=== PATIENT | male | born 1955 ===

== ENCOUNTER 2019-03-05 15:05 | Inpatient (IN) | payer BC ==
[~2019-03-05] VITALS: Ht 177.8 cm; Wt 71.7 kg
[2019-03-05] MEDS ORDERED: SIMETHICONE 80 MG TAB.CHEW PO PRN (20:30)
[2019-03-05] MEDS ORDERED: LORAZEPAM 1 MG TABLET PO PRN (20:30)
--- NOTE | 2019-03-05 20:55 | NUR ---
Admitting Notes Patient arrived from [facility] via ambulance, with daughter and friend at bedside, and was transferred from the [facility] to his bed. Patient is alert/oriented x3 with no complaints of pain or discomfort at this time. Daughter, Jessica, had DPOA, and can be reached at [phone]. Per patient, he has no significant medical history other than high blood pressure and is not currently taking blood pressure medication to control his BP. Patient states he does not have a history of diabetes mellitus or any other endocrine issues. Patient has a medial abdominal incision which is healing, three healing laparotomy incisions on the left side of his chest/abdomen which are healing, and left scar on his knee from previous knee replacement. Patient currently has a left sided colostomy, with a pink stoma, and liquid brown drainage in collection bag. Patient has a left sided nephrostomy with light yellow drainage and is also able to use the urinal, which also reflects light yellow output. Patient's blood pressure at at this time is 113/68 hr 95 thus the 2100h scheduled nitro-bid ointment 2g was withheld. Will continue to monitor and assess.
[2019-03-05] MEDS: NITROGLYCERIN OINT 1 GM PACKET TP SCH (21:00)
[2019-03-05] MEDS ORDERED: CARVEDILOL 25 MG TABLET PO SCH (21:00)
[2019-03-05] MEDS ORDERED: Z GUARD REMEDY PASTE 57 GM TUBE TOP PRN (21:30)
[2019-03-05 21:31] VITALS: BP 113/68
[2019-03-06] MEDS ORDERED: METOCLOPRAMIDE HCL 10 MG/2 ML VIAL IV SCH
[2019-03-06] MEDS ORDERED: METOCLOPRAMIDE HCL 10 MG TABLET ONE (00:09)
[2019-03-06] MEDS: METOCLOPRAMIDE HCL 10 MG TABLET PO SCH ×5 (00:11→20:23)
[2019-03-06 04:30] VITALS: BP 150/75
[2019-03-06] MEDS: PANTOPRAZOLE SODIUM 40 MG TABLET.DR PO SCH (06:20)
--- NOTE | 2019-03-06 06:30 | NUR ---
Patient slept intermittently throughout night after admission to Acute Rehab dept. Patient had no complaints of pain or discomfort this shift, but patient did state that he was unable to sleep completely. Nurse observe any signs/symptoms of acute distress or discomfort after admission to unit. Prescribed 2200h nitro-bid was withheld due to decreased blood pressure of 113/68 hr 95. New order for stat chest x-ray for 03/06/19 noted. MRSA screen ordered and will collect before end of shift, as patient is currently sleeping. All nursing needs were met promptly and patient is warm, dry, and comfortable. All safety and fall precaution measures remain in place. Call light and personal items remain within reach at all times.
[2019-03-06 07:34] LABS: BASOPHILS % (AUTO) 0.5 % (0.0-2.0); EOSINOPHILS # (AUTO) 0.1 K/uL (0.0-0.7); EOSINOPHILS % (AUTO) 1.1 % (0.0-7.0); HEMOGLOBIN 8.3 g/dL (12.5-16.3); LYMPHOCYTES # (AUTO) 0.7 K/uL (20.0-40.0); LYMPHOCYTES % (AUTO) 10.8 % (20.5-51.5); MEAN CORPUSCULAR HEMOGLOBIN 27.6 uug (23.8-33.4); MEAN CORPUSCULAR HGB CONC 33 g/dL (32.5-36.3); MEAN CORPUSCULAR VOLUME 82.9 fL (73.0-96.2); MONOCYTES % (AUTO) 14.4 % (0.0-11.0); NEUTROPHILS # (AUTO) 4.8 K/uL (1.8-8.9); NEUTROPHILS % (AUTO) 73.2 % (38.5-71.5); PLATELET COUNT (AUTO) 276 K/uL (152-348); RED BLOOD CELL COUNT(AUTO) 3.01 MIL/uL (4.06-5.63); WHITE BLOOD COUNT (AUTO) 6.6 K/uL (3.6-10.2)
[2019-03-06 07:43] LABS: BILIRUBIN,TOTAL 0.4 mg/dL (0.2-1.0); CREATININE 1.4 mg/dL (0.6-1.3); MAGNESIUM 1.4 mg/dL (1.8-2.4); PHOSPHOROUS 3.7 mg/dL (2.5-4.9); POTASSIUM 3.6 mmol/L (3.5-5.1); TOTAL PROTEIN, SERUM 6.5 g/dL (6.4-8.2)
[2019-03-06] MEDS: CARVEDILOL 12.5 MG TABLET PO SCH ×2 (07:49→17:22)
[2019-03-06] MEDS: NITROGLYCERIN OINT 1 GM PACKET TP SCH ×3 (07:49→20:24)
[2019-03-06 08:00] VITALS: BP 147/78
[2019-03-06] MEDS ORDERED: CARVEDILOL 25 MG TABLET PO SCH (08:00)
[2019-03-06] MEDS: MINERAL OIL 30 ML OIL PO SCH ×2 (10:00→17:00)
[2019-03-06] MEDS ORDERED: MAGNESIUM OXIDE 400 MG TABLET PO ONE (12:00)
--- NOTE | 2019-03-06 13:20 | NUR ---
WOUND CARE CONSULT: PT PRESENTS WITH HEALED ABDOMINAL INCISION, HEALING TRACH, LEFT NEPHROSTOMY TUBE WITH TAPE BLISTER TO LEFT HIP AREA AND COLOSTOMY, ALL PRESENT ON ADMISSION. PT TO BE FOLLOWED BY SURGICAL TEAM. RECOMMENDATIONS MADE FOR WOUND CARE OF TAPE BLISTER. DISCUSSED WITH NURSING STAFF. PT IS INDEPENDENT WITH BED MOBILITY AND CONTINENT. WILL SEE PRN. CLEMONS IN AGREEMENT WITH PLAN OF CARE. Addendum: 03/06/19 at 1323 by SHELLY YAP RN Amended: Links added.
[2019-03-06 16:31] VITALS: BP 155/83
[2019-03-06 19:54] VITALS: BP 120/63
--- NOTE | 2019-03-06 21:37 | NUR ---
aaox4 admitted for diverticulitis. Needs attended. VSS. No acute distress noted. Tolerated po meds well. Abdominal incision KELLIE. Left hip abrasion with xeroform and mepilex applied. Left side colostomy intact with brownish liquid stool noted. Left side nephrostomy intact draining yellow urine. Patient still void. Denies any pain nor any chest discomfort. Dressing intact to trach stoma. Will monitor patient.
[2019-03-07 05:10] VITALS: BP 106/57
[2019-03-07] MEDS: PANTOPRAZOLE SODIUM 40 MG TABLET.DR PO SCH (06:30)
[2019-03-07] MEDS: METOCLOPRAMIDE HCL 10 MG TABLET PO SCH ×4 (06:31→20:45)
--- NOTE | 2019-03-07 06:57 | NUR ---
slept well. aaox4 left nephrostomy intact draining well. No acute distress noted. left colostomy intact. Denies any pain nor any discomfort. Siderails up for safety.
[2019-03-07 07:10] LABS: BASOPHILS # (AUTO) 0.1 K/uL (0.0-8.0); BASOPHILS % (AUTO) 0.8 % (0.0-2.0); EOSINOPHILS # (AUTO) 0.1 K/uL (0.0-0.7); EOSINOPHILS % (AUTO) 1.3 % (0.0-7.0); HEMATOCRIT 23.2 % (36.7-47.1); HEMOGLOBIN 7.8 g/dL (12.5-16.3); LYMPHOCYTES # (AUTO) 0.8 K/uL (20.0-40.0); LYMPHOCYTES % (AUTO) 12.9 % (20.5-51.5); MEAN CORPUSCULAR HEMOGLOBIN 27.5 uug (23.8-33.4); MEAN CORPUSCULAR HGB CONC 34 g/dL (32.5-36.3); MEAN CORPUSCULAR VOLUME 81.1 fL (73.0-96.2); MONOCYTES # (AUTO) 0.9 K/uL (2.0-10.0); MONOCYTES % (AUTO) 14.2 % (0.0-11.0); NEUTROPHILS # (AUTO) 4.3 K/uL (1.8-8.9); NEUTROPHILS % (AUTO) 70.8 % (38.5-71.5); PLATELET COUNT (AUTO) 289 K/uL (152-348); RED BLOOD CELL COUNT(AUTO) 2.86 MIL/uL (4.06-5.63)
[2019-03-07 07:24] LABS: CREATININE 1.4 mg/dL (0.6-1.3); MAGNESIUM 1.5 mg/dL (1.8-2.4); PHOSPHOROUS 3.8 mg/dL (2.5-4.9); POTASSIUM 3.7 mmol/L (3.5-5.1)
[2019-03-07 08:00] VITALS: BP 132/68
[2019-03-07] MEDS: CARVEDILOL 12.5 MG TABLET PO SCH ×2 (08:44→17:07)
[2019-03-07] MEDS: NITROGLYCERIN OINT 1 GM PACKET TP SCH ×2 (08:44→20:46)
[2019-03-07] MEDS: MINERAL OIL 30 ML OIL PO SCH ×2 (09:00→17:00)
[2019-03-07] MEDS ORDERED: MAGNESIUM OXIDE 400 MG TABLET PO ONE (12:00)
[2019-03-07 16:17] VITALS: BP 125/64
--- NOTE | 2019-03-07 18:21 | NUR ---
Patient is AAOx4. Able to express needs. Vital signs stable for patient. Afebrile. Due medications administered as ordered and scheduled and tolerated well. Patient with a colostomy and nephrostomy bags and draining well within normal limit color for both output. Pt. on PT/OT therapy. Skin kept clean and dry. patient seen by MEDIA PRODUCTION MANAGER with NNO for now. NO c/o pain at this time. Needs attended, safety measures in place, call light left at bed side and will continue with care.
--- NOTE | 2019-03-07 18:46 | NUR ---
Mineral oil not available, spoke with pharmacy and they stated will be delivered tomorrow.
[2019-03-07 19:56] VITALS: BP 115/70
--- NOTE | 2019-03-07 21:19 | NUR ---
PATIENT IS IN BED, ALERT AND VERBALLY RESPONSIVE. AFEBRILE. PATIENT HAS FRIEND AT BEDSIDE. IN NO RESPIRATORY DISTRESS. DENIES PAIN AT THIS TIME. RECEIVED DUE MEDICATIONS ORDERED. TOLERATED WELL. CHANGED TRACH STOMA DRESSING PER PATIENT'S REQUEST. TOLERATED DRESSING CHANGE WELL. PATIENT WITH LEFT SIDE COLOSTOMY, INTACT. ALSO WITH LEFT SIDE NEPHROSTOMY, INTACT. CALL LIGHT AND PERSONAL BELONGINGS WITHIN REACH. SIDE RAILS X 2 UP. BED WHEELS LOCKED. BED IN LOW POSITION. KEPT PATIENT CLEAN, WARM, AND COMFORTABLE. WILL CONTINUE TO MONITOR PATIENT.
[2019-03-07] MEDS: diphenhydrAMINE 50 MG CAPSULE PO PRN (21:48)
[2019-03-08 04:45] VITALS: BP 120/65
[2019-03-08] MEDS: PANTOPRAZOLE SODIUM 40 MG TABLET.DR PO SCH (06:35)
[2019-03-08] MEDS: METOCLOPRAMIDE HCL 10 MG TABLET PO SCH ×4 (06:35→20:51)
--- NOTE | 2019-03-08 06:39 | NUR ---
PATIENT IS IN BED, ALERT AND VERBALLY RESPONSIVE. IN NO ACUTE OR RESPIRATORY DISTRESS. TRACH STOMA DRESSING INTACT. PATIENT WITH LEFT SIDE COLOSTOMY DRAINING BROWN SOFT STOOL. PATIENT ALSO WITH LEFT SIDE NEPHROSTOMY DRAINING CLEAR YELLOW URINE. FALL, SAFETY, ASPIRATION PRECAUTIONS OBSERVED. KEPT PATIENT WARM AND COMFORTABLE. CALL LIGHT AND PERSONAL BELONGINGS WITHIN REACH. BED AT LOW POSITION AND BED WHEELS LOCKED. ALL NEEDS ATTENDED.
[2019-03-08 07:37] VITALS: BP 138/75
[2019-03-08] MEDS: CARVEDILOL 12.5 MG TABLET PO SCH ×2 (08:39→17:17)
[2019-03-08] MEDS: NITROGLYCERIN OINT 1 GM PACKET TP SCH ×2 (08:41→20:51)
[2019-03-08] MEDS: MINERAL OIL 30 ML OIL PO SCH ×2 (12:06→16:58)
--- NOTE | 2019-03-08 13:23 | NUR ---
Pt received this morning, resting in bed. Pt assessed, able to make needs known. Pt denies pain, SOB, and discomfort. Pt compliant with medication administration and therapies as offered. Pt assisted with trach stoma dressing change, healing well with no s/s of infection. Colostomy bag changed, brown stool output noted, stoma beefy red, skin integrity intact. Nephrostomy draining clear, yellow urine, 300 cc emptied. All safety and comfort needs attended to, call light and personal items within reach. Bed locked, in lowest position with side rails up x2, and alarm on. Will continue to monitor.
--- NOTE | 2019-03-08 15:24 | NUR ---
INDIVIDUALIZE OVERALL PLAN OF CARE
[2019-03-08] MEDS ORDERED: TEMAZEPAM 7.5 MG CAPSULE PO PRN (15:30)
[2019-03-08] MEDS: VITAMINS A AND D OINT TP SCH (16:58)
[2019-03-08 17:10] VITALS: BP 140/78
[2019-03-08 20:02] VITALS: BP 118/65
--- NOTE | 2019-03-08 20:07 | NUR ---
RECEIVED PATIENT IN BED, ALERT AND VERBALLY RESPONSIVE. AFEBRILE. NO RESPIRATORY DISTRESS. NO COMPLAINTS OF PAIN AT THIS TIME. PATIENT HAS DRY DRESSING INTACT ON TRACH STOMA SITE. PATIENT ALSO WITH LEFT SIDE NEPHROSTOMY DRAINING CLEAR YELLOW URINE. PATIENT WITH LEFT SIDE COLOSTOMY WITH BROWN SOFT STOOL. PATIENT REQUESTED FOR NEW URINAL BOTTLE AND BLANKET. PROVIDED REQUESTED. FALL, SAFETY, AND ASPIRATION PRECAUTIONS OBSERVED. CALL LIGHT WITHIN REACH. BED WHEELS LOCKED AND SIDE RAILS X 2 UP. BED AT LOW POSITION. WILL CONTINUE TO MONITOR PATIENT.
[2019-03-09] MEDS: diphenhydrAMINE 50 MG CAPSULE PO PRN (01:07)
[2019-03-09 04:10] VITALS: BP 127/74
[2019-03-09 05:57] VITALS: BP 127/74
--- NOTE | 2019-03-09 06:13 | NUR ---
PATIENT IS IN BED, WAS INTERMITTENTLY AWAKE AND ASLEEP. RECEIVED TEMAZEPAM 7.5MG AT 21:43 ORDERED. WOKE UP AT 00:30. PATIENT THEN VERBALIZED HE CAN'T SLEEP. PROVIDED PERSONAL HYGIENE TO PATIENT. KEPT CLEAN AND DRY. PATIENT REQUESTED FOR JELLO, PROVIDED PER REQUEST. AT 01:07, PATIENT RECEIVED BENADRYL 50MG ORDERED. UPON ROUNDS AT 02:00 AND 04:00, PATIENT ASLEEP IN BED. PATIENT WOKE UP AT 06:10. NO ACUTE OR RESPIRATORY DISTRESS. ALL NEEDS ATTENDED. FALL, SAFETY, AND ASPIRATION PRECAUTIONS OBSERVED.
[2019-03-09] MEDS: METOCLOPRAMIDE HCL 10 MG TABLET PO SCH ×4 (06:34→20:54)
[2019-03-09] MEDS: PANTOPRAZOLE SODIUM 40 MG TABLET.DR PO SCH (06:34)
[2019-03-09 07:09] LABS: BASOPHILS % (AUTO) 0.6 % (0.0-2.0); EOSINOPHILS # (AUTO) 0.1 K/uL (0.0-0.7); EOSINOPHILS % (AUTO) 1.8 % (0.0-7.0); HEMOGLOBIN 7.7 g/dL (12.5-16.3); LYMPHOCYTES # (AUTO) 0.6 K/uL (20.0-40.0); LYMPHOCYTES % (AUTO) 9.4 % (20.5-51.5); MEAN CORPUSCULAR HEMOGLOBIN 27.1 uug (23.8-33.4); MEAN CORPUSCULAR HGB CONC 34 g/dL (32.5-36.3); MEAN CORPUSCULAR VOLUME 80.9 fL (73.0-96.2); MONOCYTES # (AUTO) 0.9 K/uL (2.0-10.0); MONOCYTES % (AUTO) 12.7 % (0.0-11.0); NEUTROPHILS # (AUTO) 5.1 K/uL (1.8-8.9); NEUTROPHILS % (AUTO) 75.5 % (38.5-71.5); PLATELET COUNT (AUTO) 286 K/uL (152-348); RED BLOOD CELL COUNT(AUTO) 2.84 MIL/uL (4.06-5.63); WHITE BLOOD COUNT (AUTO) 6.8 K/uL (3.6-10.2)
[2019-03-09 07:41] LABS: CREATININE 1.2 mg/dL (0.6-1.3); MAGNESIUM 1.6 mg/dL (1.8-2.4); PHOSPHOROUS 4.4 mg/dL (2.5-4.9); POTASSIUM 3.4 mmol/L (3.5-5.1)
[2019-03-09] MEDS: MINERAL OIL 30 ML OIL PO SCH ×2 (08:50→16:51)
[2019-03-09] MEDS: CARVEDILOL 12.5 MG TABLET PO SCH ×2 (08:51→17:09)
[2019-03-09] MEDS: NITROGLYCERIN OINT 1 GM PACKET TP SCH ×2 (09:01→20:56)
[2019-03-09] MEDS: VITAMINS A AND D OINT TP SCH ×2 (09:02→17:10)
[2019-03-09] MEDS ORDERED: POTASSIUM CHLORIDE 20 MEQ TAB.PRT.SR PO ONE (10:30)
[2019-03-09] MEDS ORDERED: MAGNESIUM OXIDE 400 MG TABLET PO ONE (10:30)
--- NOTE | 2019-03-09 13:37 | NUR ---
INTERDISCIPLINARY TEAM CONFERENCE
[2019-03-09 15:40] VITALS: BP 117/69
--- NOTE | 2019-03-09 17:49 | NUR ---
PATIENT IS ALERT, ORIENTED X4, VERBALLY RESPONSIVE, NO SOB, RESP EVEN NONLABORED,SKIN WARM AND DRY TO TOUCH, COLOSTOMY IS INTACT, NEPHROSTOMY IS INTACT, NOTED WITH ANGRY AND DENIAL MOOD TOWARD COLOSTOMY, CARE PROVIDED WITH WITTINESS OF CHARGE NURSE ON DUTY. OFFERED PATIENT THAT IF HE IS READY TO LEARN ABOUT COLOSTOMY CARE, PATIENT STATED " I AM NOT GOING HOME WITH COLOSTOMY AND I DO NOT NEED TO LEARN" STATUS POST TRACHEOTOMY, CARE PROVIDED, DRY AND CLEAN, NEW DRESSING DONE.
--- NOTE | 2019-03-09 20:00 | NUR ---
NSG: RECEIVED PATIENT LYING IN BED, ALERT AND ORIENTED VERBALLY RESPONSIVE. AFEBRILE. PATIENT HAS FRIEND AT BEDSIDE. IN NO RESPIRATORY DISTRESS. DENIES PAIN AND DISCOMFORT AT THIS TIME. RECEIVED DUE MEDICATIONS ORDERED. TOLERATED WELL. CHANGED TRACH STOMA DRESSING PER PATIENT'S REQUEST. PATIENT WITH LEFT SIDE COLOSTOMY, INTACT. ALSO WITH LEFT SIDE NEPHROSTOMY, INTACT. CALL LIGHT AND PERSONAL BELONGINGS WITHIN REACH. SIDE RAILS X 2 UP. BED WHEELS LOCKED. BED IN LOW POSITION. KEPT PATIENT CLEAN, WARM, AND COMFORTABLE. BED ALARM ON. WILL CONTINUE TO MONITOR PATIENT.
[2019-03-09 20:38] VITALS: BP 125/63
[2019-03-09] MEDS: TEMAZEPAM 15 MG CAPSULE PO PRN (21:30)
--- NOTE | 2019-03-10 05:42 | NUR ---
NSG: Remain cooperative. slept well through the night. Restoril 15 mg po effective for sleep. no c/o pain or discomfort at this time.continue monitor for safety.
[2019-03-10 06:00] VITALS: BP 110/67
[2019-03-10] MEDS: PANTOPRAZOLE SODIUM 40 MG TABLET.DR PO SCH (06:00)
[2019-03-10] MEDS: METOCLOPRAMIDE HCL 10 MG TABLET PO SCH ×4 (06:31→21:28)
[2019-03-10 07:22] LABS: CREATININE 1.4 mg/dL (0.6-1.3); MAGNESIUM 1.5 mg/dL (1.8-2.4); PHOSPHOROUS 4.2 mg/dL (2.5-4.9); POTASSIUM 3.7 mmol/L (3.5-5.1)
[2019-03-10 07:23] LABS: BASOPHILS % (AUTO) 0.5 % (0.0-2.0); EOSINOPHILS # (AUTO) 0.1 K/uL (0.0-0.7); EOSINOPHILS % (AUTO) 1.4 % (0.0-7.0); HEMATOCRIT 23.5 % (36.7-47.1); HEMOGLOBIN 7.7 g/dL (12.5-16.3); LYMPHOCYTES # (AUTO) 0.8 K/uL (20.0-40.0); MEAN CORPUSCULAR HEMOGLOBIN 26.7 uug (23.8-33.4); MEAN CORPUSCULAR HGB CONC 33 g/dL (32.5-36.3); MEAN CORPUSCULAR VOLUME 81.6 fL (73.0-96.2); MONOCYTES # (AUTO) 0.9 K/uL (2.0-10.0); NEUTROPHILS # (AUTO) 5.2 K/uL (1.8-8.9); NEUTROPHILS % (AUTO) 74.1 % (38.5-71.5); PLATELET COUNT (AUTO) 303 K/uL (152-348); RED BLOOD CELL COUNT(AUTO) 2.88 MIL/uL (4.06-5.63); WHITE BLOOD COUNT (AUTO) 7.1 K/uL (3.6-10.2)
[2019-03-10 08:01] VITALS: BP 126/75
[2019-03-10] MEDS: MINERAL OIL 30 ML OIL PO SCH ×2 (08:25→19:06)
[2019-03-10] MEDS: NITROGLYCERIN OINT 1 GM PACKET TP SCH ×2 (08:25→21:29)
[2019-03-10] MEDS: CARVEDILOL 12.5 MG TABLET PO SCH ×2 (08:26→17:35)
[2019-03-10] MEDS: VITAMINS A AND D OINT TP SCH ×2 (08:29→17:35)
[2019-03-10] MEDS ORDERED: diphenhydrAMINE 1% CREAM 28.3 GM TUBE TP PRN (09:00)
[2019-03-10] MEDS: MAGNESIUM CHLORIDE 64 MG TABLET.SA PO SCH (09:16)
--- NOTE | 2019-03-10 09:53 | NUR ---
patient noted resting in bed, brother noted at bed side, no complaints of pain, no signs of distress noted, took all AM medications, call light in reach, bed locked and in lowest position
[2019-03-10] MEDS ORDERED: METO-295 PO (14:28)
[2019-03-10] MEDS ORDERED: SIME80TA15 PO (14:28)
[2019-03-10] MEDS ORDERED: CARV12.52 PO (14:28)
[2019-03-10] MEDS ORDERED: NITR1OIN2 TP (14:28)
[2019-03-10 15:00] VITALS: BP 120/64
[2019-03-10 19:37] VITALS: BP 118/61
[2019-03-10] MEDS: TEMAZEPAM 15 MG CAPSULE PO PRN (21:30)
[2019-03-11 04:50] VITALS: BP 121/70
[2019-03-11] MEDS: diphenhydrAMINE 25 MG CAP PO PRN ×2 (05:21→23:42)
[2019-03-11] MEDS: PANTOPRAZOLE SODIUM 40 MG TABLET.DR PO SCH (06:37)
[2019-03-11] MEDS: METOCLOPRAMIDE HCL 10 MG TABLET PO SCH ×4 (06:37→21:16)
[2019-03-11 08:00] VITALS: BP 135/79
[2019-03-11] MEDS: NITROGLYCERIN OINT 1 GM PACKET TP SCH ×2 (09:26→21:17)
[2019-03-11] MEDS: MAGNESIUM CHLORIDE 64 MG TABLET.SA PO SCH (09:27)
[2019-03-11] MEDS: MINERAL OIL 30 ML OIL PO SCH ×2 (09:28→18:05)
[2019-03-11] MEDS: CARVEDILOL 12.5 MG TABLET PO SCH ×2 (09:28→17:43)
[2019-03-11] MEDS: VITAMINS A AND D OINT TP SCH ×2 (09:47→17:43)
[2019-03-11 16:47] VITALS: BP 135/74
--- NOTE | 2019-03-11 19:20 | NUR ---
Received patient lying in bed. AAOx4. In no acute distress. Denies any pain or SOB. Visitor on bedside. Colostomy intact. Nephrostomy tube intact and draining via gravity. Dressing on tracheostomy site dry and clean. Needs attended to and met. Safety measure initiated and call starr within reached.
[2019-03-11 20:08] VITALS: BP 141/86
[2019-03-11] MEDS: MELATONIN 3 MG TABLET PO SCH (21:16)
[2019-03-11] MEDS: TEMAZEPAM 15 MG CAPSULE PO PRN (21:17)
[2019-03-12 04:20] VITALS: BP 113/69
--- NOTE | 2019-03-12 05:32 | NUR ---
Patient slept well last night. Denies any pain or SOB. Colostomy bag remains intact. Nephrostomy intact and draining. Dressing on tracheostomy site changes per pt request. Dressing remains intact, dry and clean. Needs attended to and met. Safety measure maintained and call starr within reached.
[2019-03-12] MEDS: METOCLOPRAMIDE HCL 10 MG TABLET PO SCH ×4 (06:31→21:16)
[2019-03-12] MEDS: PANTOPRAZOLE SODIUM 40 MG TABLET.DR PO SCH (06:31)
[2019-03-12 07:43] VITALS: BP 125/71
[2019-03-12] MEDS: NITROGLYCERIN OINT 1 GM PACKET TP SCH ×2 (08:55→21:07)
[2019-03-12] MEDS: CARVEDILOL 12.5 MG TABLET PO SCH ×2 (08:56→17:38)
[2019-03-12] MEDS: MINERAL OIL 30 ML OIL PO SCH ×2 (08:57→17:38)
[2019-03-12] MEDS: VITAMINS A AND D OINT TP SCH ×2 (08:58→17:38)
[2019-03-12] MEDS: MAGNESIUM CHLORIDE 64 MG TABLET.SA PO SCH (08:58)
[2019-03-12 15:01] VITALS: BP 119/59
--- NOTE | 2019-03-12 16:09 | NUR ---
Patient noted resting in bed, took shower with OT, colostomy emptied this shift, no complaints of pain, no signs of distress noted, call light in reach, bed locked and in lowest position, all needs met at this time
--- NOTE | 2019-03-12 19:20 | NUR ---
Received patient lying in bed. AAOx4. In no acute distress. Denies any pain or SOB. Colostomy intact. Nephrostomy tube intact and draining via gravity. Dressing on tracheostomy site dry and clean. Needs attended to and met. Safety measure initiated and call starr within reached.
[2019-03-12 20:50] VITALS: BP 122/66
[2019-03-12] MEDS: MELATONIN 3 MG TABLET PO SCH (20:57)
[2019-03-12 21:45] LABS: *BILIRUBIN,URIN NEGATIVE (NEGATIVE); *CLARITY,URINE CLEAR (CLEAR); *COLOR,URINE YELLOW (YELLOW); *KETONES,URINE NEGATIVE (NEGATIVE); *UROBILINOGEN,URINE 0.2 E.U./dl (NORMAL); LEUKOCYTE ESTERASE ,URINE TRACE (NEGATIVE); NITRITE, URINE NEGATIVE (NEGATIVE); PH,URINE 5.5 (5.0-8.0); UGLUCOSE NEGATIVE (NEGATIVE)
[2019-03-12 21:46] LABS: *BLOOD, URINE NEGATIVE (NEGATIVE)
[2019-03-12 21:49] LABS: BACTERIA,URINE FEW /HPF (NONE SEEN); MUCUS,URINE FEW /LPF (0-FEW); RBC,URINE 0-3 /HPF (0-3); SQUAMOUS EPITHELIAL CELL,UR FEW /HPF (NONE SEEN); WBC,URINE 80-100 /HPF (0-3)
[2019-03-13 04:10] VITALS: BP 116/66
--- NOTE | 2019-03-13 05:34 | NUR ---
Patient slept well last night. Denies any pain or SOB. Colostomy bag remains intact. Nephrostomy intact and draining. Dressing on tracheostomy site remains intact, dry and clean. Needs attended to and met. Safety measure maintained and call starr within reached.
[2019-03-13] MEDS: PANTOPRAZOLE SODIUM 40 MG TABLET.DR PO SCH (06:09)
[2019-03-13] MEDS: METOCLOPRAMIDE HCL 10 MG TABLET PO SCH ×4 (06:34→21:11)
[2019-03-13 07:09] LABS: BASOPHILS % (AUTO) 0.5 % (0.0-2.0); EOSINOPHILS # (AUTO) 0.1 K/uL (0.0-0.7); EOSINOPHILS % (AUTO) 1.5 % (0.0-7.0); HEMATOCRIT 21.6 % (36.7-47.1); LYMPHOCYTES # (AUTO) 0.9 K/uL (20.0-40.0); LYMPHOCYTES % (AUTO) 11.2 % (20.5-51.5); MEAN CORPUSCULAR HGB CONC 33 g/dL (32.5-36.3); MEAN CORPUSCULAR VOLUME 81.3 fL (73.0-96.2); MONOCYTES # (AUTO) 0.9 K/uL (2.0-10.0); MONOCYTES % (AUTO) 11.8 % (0.0-11.0); NEUTROPHILS # (AUTO) 5.9 K/uL (1.8-8.9); PLATELET COUNT (AUTO) 244 K/uL (152-348); RED BLOOD CELL COUNT(AUTO) 2.65 MIL/uL (4.06-5.63); WHITE BLOOD COUNT (AUTO) 7.8 K/uL (3.6-10.2)
[2019-03-13 07:14] LABS: HEMOGLOBIN 7.2 g/dL (12.5-16.3)
[2019-03-13 07:26] LABS: BILIRUBIN,TOTAL 0.5 mg/dL (0.2-1.0); CREATININE 1.3 mg/dL (0.6-1.3); MAGNESIUM 1.4 mg/dL (1.8-2.4); PHOSPHOROUS 4.1 mg/dL (2.5-4.9); POTASSIUM 3.4 mmol/L (3.5-5.1); TOTAL PROTEIN, SERUM 6.2 g/dL (6.4-8.2)
[2019-03-13 07:38] LABS: EOSINOPHILS % (MANUAL) 2 % (0-8); LYMPHOCYTES % (MANUAL) 8 % (20-40); MONOCYTES % (MANUAL) 1 % (2-10); NEUTROPHILS % (MANUAL) 89 % (42-75)
[2019-03-13 07:59] VITALS: BP 107/60
[2019-03-13] MEDS: MINERAL OIL 30 ML OIL PO SCH ×2 (08:51→18:14)
[2019-03-13] MEDS: MAGNESIUM CHLORIDE 64 MG TABLET.SA PO SCH (08:52)
[2019-03-13] MEDS: CARVEDILOL 12.5 MG TABLET PO SCH ×2 (08:56→17:36)
[2019-03-13] MEDS: NITROGLYCERIN OINT 1 GM PACKET TP SCH ×2 (08:57→21:14)
[2019-03-13] MEDS: VITAMINS A AND D OINT TP SCH ×2 (09:06→17:43)
[2019-03-13] MEDS ORDERED: POTASSIUM CHLORIDE 20 MEQ TAB.PRT.SR PO ONE (15:00)
[2019-03-13] MEDS ORDERED: MAGNESIUM OXIDE 400 MG TABLET PO ONE (15:00)
[2019-03-13 16:02] VITALS: BP 107/62
--- NOTE | 2019-03-13 20:30 | NUR ---
Pt in bed, awake. Brother at bedside. Emptied nephrostomy bag with 124 cc yellow urine. Site reinforced with tape. Bag was taped. Still leaking per pt. Dr. Kraft here and saw pt.
[2019-03-13] MEDS: MELATONIN 3 MG TABLET PO SCH (21:12)
[2019-03-13 21:27] VITALS: BP 112/64
--- NOTE | 2019-03-13 22:18 | NUR ---
Awake upon initial rounds. AAOx4 Needs attended. VSS. No acute distress noted. Left sided colostomy intact draining brownish stools. Left nephrostomy intact draining yellow urine. I & O monitor.Trach dressing changed as needed. Will monitor patient. Tolerated po meds well. Voiding well in urinal. Fall risk noted. Siderails up for safety.
[2019-03-14 06:21] VITALS: BP 121/71
[2019-03-14] MEDS: PANTOPRAZOLE SODIUM 40 MG TABLET.DR PO SCH (06:31)
[2019-03-14] MEDS: METOCLOPRAMIDE HCL 10 MG TABLET PO SCH ×4 (06:32→21:07)
--- NOTE | 2019-03-14 06:58 | NUR ---
Slept well most of the shift. AAOx4 VSS no acute distress noted. Needs attended. Left nephrostomy tube intact, draining yellow urine. Voiding also in the urinal. No complaints presented during shift. Colostomy intact with brownish stools noted. Trach dressing intact. Fall precautions maintained. Siderails up for safety.
[2019-03-14] MEDS: MINERAL OIL 30 ML OIL PO SCH ×3 (08:28→21:07)
[2019-03-14] MEDS: MAGNESIUM CHLORIDE 64 MG TABLET.SA PO SCH (08:28)
[2019-03-14] MEDS: CARVEDILOL 12.5 MG TABLET PO SCH ×2 (08:30→17:21)
[2019-03-14] MEDS: NITROGLYCERIN OINT 1 GM PACKET TP SCH ×2 (08:31→21:08)
[2019-03-14] MEDS: VITAMINS A AND D OINT TP SCH ×2 (08:32→17:20)
[2019-03-14 08:39] VITALS: BP 120/73
--- NOTE | 2019-03-14 10:00 | NUR ---
Received pt. in bed, A/OX4 verbally responsive and able to make his needs known. No acute distress, on RA with SpO2 of 95%. All due medications administered as ordered and tolerated well. Noted with LT. nephrostomy tube with clear urine output, no leak. Colostomy bag with stool output. No new skin condition noted. Kept pt. clean and dry. All pt. needs attended and met promptly. Safety measures in place. Call light and all frequently used items within pt. reach. Will continue to monitor accordingly.
--- NOTE | 2019-03-14 18:10 | NUR ---
EOS: No significant change during this shift. All due medications administered as ordered. Spoke with central supply regarding obtaining Argon Nephrostomy bag, per staff, item is available at [facility] and will obtain. Discussed with pt. plan on replacing nephrostomy bag, pt amenable. Kept pt. clean and dry. Safety measures in place. Call light and all frequently used items within pt. reach. Will endorse to oncoming shift accordingly.
--- NOTE | 2019-03-14 19:20 | NUR ---
RECEIVED PATIENT AWAKE IN BED. AO X 4. PATIENT DOES NOT VERBALIZE ANY PAIN OR DISTRESS AT THE MOMENT. NO SHORTNESS OF BREATH. COLOSTOMY BAG HAS ADEQUATE OUTPUT. NEPHROSTOMY TUBE DRAINING CLEAR OUTPUT. SAFETY PRECAUTIONS IN PLACE. WILL CONTINUE TO MONITOR.
[2019-03-14 19:53] VITALS: BP 131/74
[2019-03-14] MEDS: MELATONIN 3 MG TABLET PO SCH (21:07)
[2019-03-15 04:30] VITALS: BP 132/76
[2019-03-15] MEDS: METOCLOPRAMIDE HCL 10 MG TABLET PO SCH ×4 (06:38→20:32)
[2019-03-15] MEDS: PANTOPRAZOLE SODIUM 40 MG TABLET.DR PO SCH (06:38)
[2019-03-15] MEDS: MINERAL OIL 30 ML OIL PO SCH ×2 (06:50→19:29)
--- NOTE | 2019-03-15 07:56 | NUR ---
PATIENT SLEPT THROUGHOUT THE NIGHT. ADEQUATE COLOSTOMY OUTPUT. NEPHROSTOMY TUBE DRAINING ADEQUATELY. COLOSTOMY BAG CHANGED. WILL ENDORSE ACCORDINGLY. DRESSING ON TRACHEOSTOMY CLEAN AND DRY.
[2019-03-15] MEDS: CARVEDILOL 12.5 MG TABLET PO SCH ×2 (09:11→17:56)
[2019-03-15] MEDS: NITROGLYCERIN OINT 1 GM PACKET TP SCH ×2 (09:44→20:33)
[2019-03-15] MEDS: MAGNESIUM CHLORIDE 64 MG TABLET.SA PO SCH (10:01)
[2019-03-15] MEDS: VITAMINS A AND D OINT TP SCH ×2 (10:42→16:54)
[2019-03-15 12:59] LABS: BASOPHILS % (AUTO) 0.4 % (0.0-2.0); EOSINOPHILS # (AUTO) 0.1 K/uL (0.0-0.7); HEMATOCRIT 23.4 % (36.7-47.1); HEMOGLOBIN 7.9 g/dL (12.5-16.3); LYMPHOCYTES # (AUTO) 0.6 K/uL (20.0-40.0); LYMPHOCYTES % (AUTO) 7.3 % (20.5-51.5); MEAN CORPUSCULAR HEMOGLOBIN 27.2 uug (23.8-33.4); MEAN CORPUSCULAR HGB CONC 34 g/dL (32.5-36.3); MEAN CORPUSCULAR VOLUME 80.9 fL (73.0-96.2); MONOCYTES # (AUTO) 0.8 K/uL (2.0-10.0); MONOCYTES % (AUTO) 9.2 % (0.0-11.0); NEUTROPHILS # (AUTO) 7.2 K/uL (1.8-8.9); NEUTROPHILS % (AUTO) 82.1 % (38.5-71.5); PLATELET COUNT (AUTO) 271 K/uL (152-348); RED BLOOD CELL COUNT(AUTO) 2.89 MIL/uL (4.06-5.63); WHITE BLOOD COUNT (AUTO) 8.7 K/uL (3.6-10.2)
[2019-03-15 13:05] LABS: CREATININE 1.2 mg/dL (0.6-1.3); MAGNESIUM 1.5 mg/dL (1.8-2.4); POTASSIUM 3.8 mmol/L (3.5-5.1)
--- NOTE | 2019-03-15 19:20 | NUR ---
Receive patient lying in bed. AAOX4. In no acute distress. Denies any pain or SOB. Nephrostomy tube intact and draining yellow urine output. Colostomy intact and stool present. VS WNL. Safety measure initiated and call starr within reached.
--- NOTE | 2019-03-15 19:35 | NUR ---
Patient is AAOx4. Able to express needs. NO acute distress noted. Vital signs taken and stable. Due medications administered as ordered and scheduled and tolerated well. Patient with a colostomy and nephrostomy bags and draining well. Patient with an order for ultrasound of the kidneys during shift and labs as order by OR ASSISTANT. Pt. on PT/OT therapy as ordered. Instructions also given on Colostomy care and trech site. Patient ambulatory with one person assist and BRP. Needs met, safety measures in place, call light left at bed side endorsed to next shift and will continue with care.
[2019-03-15 19:40] VITALS: BP 118/69
[2019-03-15] MEDS: MELATONIN 3 MG TABLET PO SCH (20:32)
[2019-03-16 04:55] VITALS: BP 133/82
[2019-03-16] MEDS: PANTOPRAZOLE SODIUM 40 MG TABLET.DR PO SCH (06:02)
[2019-03-16] MEDS: METOCLOPRAMIDE HCL 10 MG TABLET PO SCH ×2 (06:35→11:32)
--- NOTE | 2019-03-16 06:40 | NUR ---
Patient slept well last night. In no acute distress. Denies any pain or SOB. Nephrostomy tube intact and draining yellow urine output. Colostomy intact. VS WNL. NPO status. For CT abd/pelvis today. Safety measure maintained and call starr within reached.
[2019-03-16 07:46] LABS: BILIRUBIN,TOTAL 0.4 mg/dL (0.2-1.0); CREATININE 1.1 mg/dL (0.6-1.3); MAGNESIUM 1.6 mg/dL (1.8-2.4); PHOSPHOROUS 4.7 mg/dL (2.5-4.9); POTASSIUM 3.7 mmol/L (3.5-5.1); TOTAL PROTEIN, SERUM 6.5 g/dL (6.4-8.2)
[2019-03-16 07:50] LABS: BASOPHILS % (AUTO) 0.4 % (0.0-2.0); EOSINOPHILS # (AUTO) 0.1 K/uL (0.0-0.7); LYMPHOCYTES # (AUTO) 0.8 K/uL (20.0-40.0); LYMPHOCYTES % (AUTO) 9.3 % (20.5-51.5); MONOCYTES # (AUTO) 0.8 K/uL (2.0-10.0); NEUTROPHILS # (AUTO) 6.5 K/uL (1.8-8.9)
[2019-03-16 08:00] VITALS: BP 128/77
[2019-03-16] MEDS: CARVEDILOL 12.5 MG TABLET PO SCH (08:00)
[2019-03-16 08:18] LABS: EOSINOPHILS % (AUTO) 0.8 % (0.0-7.0); HEMATOCRIT 21.9 % (36.7-47.1); HEMOGLOBIN 7.5 g/dL (12.5-16.3); MEAN CORPUSCULAR HEMOGLOBIN 27.4 uug (23.8-33.4); MEAN CORPUSCULAR HGB CONC 34 g/dL (32.5-36.3); MEAN CORPUSCULAR VOLUME 80.4 fL (73.0-96.2); MONOCYTES % (AUTO) 9.3 % (0.0-11.0); NEUTROPHILS % (AUTO) 80.2 % (38.5-71.5); PLATELET COUNT (AUTO) 276 K/uL (152-348); RED BLOOD CELL COUNT(AUTO) 2.73 MIL/uL (4.06-5.63); WHITE BLOOD COUNT (AUTO) 8.2 K/uL (3.6-10.2)
[2019-03-16] MEDS: MINERAL OIL 30 ML OIL PO SCH (08:49)
[2019-03-16] MEDS: MAGNESIUM CHLORIDE 64 MG TABLET.SA PO SCH (09:00)
[2019-03-16] MEDS: VITAMINS A AND D OINT TP SCH (09:36)
[2019-03-16 09:37] VITALS: BP 128/77
[2019-03-16] MEDS: NITROGLYCERIN OINT 1 GM PACKET TP SCH (09:37)
--- NOTE | 2019-03-16 12:15 | NUR ---
Colostomy bag changed while patient and family (brother) watching and Nephrostomy bag emptied.
--- NOTE | 2019-03-16 13:37 | NUR ---
DISCHARGE NOTE: Patient is AAOx4. NO SOB noted; Vital signs are stable for patient; NO C/O pain during shift. Patient for discharge today. CT scan done in AM during shift. Discharge teaching done with patient and Family(brother) on colostomy change and care for colostomy; also teaching provided on Colostomy and Diet. Patient also provided teaching on Nephrostomy care. Both patient and family stated understanding. Colostomy bags provided for home. Trech site dressing changed. NO s/sx of infection noted or any bleeding noted. Discharge medication teaching provided. Medications faxed to patient's pharmacy. Discharge paper works signed by patient's daughter as requested by patient and daughter verbalized understanding. Patient informed to F/U with PCP and HH after discharge. VS upon discharge stable. Patient and family thanked for the care provided. Patient picked up by 2 pipeline technician and via dewey; left at 1300pm.
[2019-03-16] MEDS ORDERED: MAGNESIUM OXIDE 400 MG TABLET PO ONE (15:00)
== END 2019-03-16 13:00 | disposition home health service (06) | DRG 949 ==
PROVIDERS: ADMIT Physical Medicine & Rehabilitation Pain Medicine; ATTEND Physical Medicine & Rehabilitation Pain Medicine
PROC: 0HBRXZZ Excision of Toe Nail, External Approach (ICD-10-PCS; principal; 2019-03-08)
DX: Z48.815 Encounter for surgical aftercare following surgery on the digestive system (principal); J96.01 Acute respiratory failure with hypoxia; I21.A1 Myocardial infarction type 2; A41.9 Sepsis, unspecified organism; I21.4 Non-ST elevation (NSTEMI) myocardial infarction; E43 Unspecified severe protein-calorie malnutrition; N17.0 Acute kidney failure with tubular necrosis; R65.21 Severe sepsis with septic shock; K57.20 Diverticulitis of large intestine with perforation and abscess without bleeding; G93.49 Other encephalopathy; J90 Pleural effusion, not elsewhere classified; N13.2 Hydronephrosis with renal and ureteral calculous obstruction; J93.82 Other air leak; E87.1 Hypo-osmolality and hyponatremia; K94.09 Other complications of colostomy; B35.1 Tinea unguium; D64.9 Anemia, unspecified; Z87.442 Personal history of urinary calculi; L85.3 Xerosis cutis; N18.9 Chronic kidney disease, unspecified; R53.81 Other malaise; R26.2 Difficulty in walking, not elsewhere classified; K40.20 Bilateral inguinal hernia, without obstruction or gangrene, not specified as recurrent; E73.9 Lactose intolerance, unspecified; G47.9 Sleep disorder, unspecified; E87.6 Hypokalemia; Z88.8 Allergy status to other drugs, medicaments and biological substances; Z93.6 Other artificial openings of urinary tract status; R74.0 Nonspecific elevation of levels of transaminase and lactic acid dehydrogenase [LDH]; R82.81 Pyuria
CPT/HCPCS: 36415; 70030-TC; 71045; 76604; 76770; 83735; 84100; 85025; 85651; 87086; 87400; J2765; J8597; Q0163